=== PATIENT | male | born 1945 | race Caucasian/White ===

== ENCOUNTER 2024-05-29 07:10 | Day surgery (SDC) | payer OTHER ==
[2024-05-29] MEDS ORDERED: DIPHENHYDRAMINE HCL 50 MG/ML VIAL 1ML IV ONE (10:00)
[2024-05-29] MEDS ORDERED: ONDANSETRON HCL 2 MG/ML VIAL IV ONE (10:00)
[2024-05-29] MEDS ORDERED: fentaNYL CITRATE 50 MCG/ML AMPUL IV PUSH ONE (10:00)
[2024-05-29] MEDS ORDERED: MIDAZOLAM HCL 2 MG/2 ML VIAL IV ONE (10:00)
== END 2024-05-29 11:05 | disposition home or self-care (01) ==
LOC: AMB-ENDOS 07:10
PROVIDERS: ATTEND Colon & Rectal Surgery
DX: D12.3 Benign neoplasm of transverse colon (principal); K63.5 Polyp of colon; K55.20 Angiodysplasia of colon without hemorrhage; K62.5 Hemorrhage of anus and rectum